=== PATIENT | male | born 1955 | race Two or more races ===

== ENCOUNTER 2022-05-01 20:08 | Inpatient (IN) | payer OTHER ==
[2022-05-01 22:05] VITALS: BMI 20.2
[2022-05-01] MEDS ORDERED: BISMUTH SUBSALICYLATE 524 MG/30 ML PO PRN (22:21)
[2022-05-01] MEDS ORDERED: IBUPROFEN 400 MG TABLET (FP) PO PRN (22:21)
[2022-05-01] MEDS ORDERED: ONDANSETRON *ODT* 4 MG TABLET SL PRN (22:21)
[2022-05-01] MEDS ORDERED: MAGNESIUM HYDROX 2400MG/30ML ORAL SUSPENSION 30 ML CUP PO PRN (22:21)
[2022-05-01] MEDS ORDERED: guaiFENesin 600 MG TABLET.ER (FP) PO PRN (22:21)
[2022-05-01] MEDS ORDERED: DICYCLOMINE HCL 10 MG CAPSULE PO PRN (22:21)
[2022-05-01] MEDS ORDERED: NALOXONE HCL (KLOXXADO) 8 MG SPRAY NS PRN (22:21)
[2022-05-01] MEDS ORDERED: NALOXONE HCL 0.4 MG/ML VIAL IM PRN (22:21)
[2022-05-01] MEDS ORDERED: POLYETHYLENE GLYCOL (HEALTHYLAX) 3350 17 GM PACKET PO PRN (22:21)
[2022-05-01] MEDS ORDERED: P-EPHED 60MG/TRIPROLIDI 2.5MG TABLET PO PRN (22:21)
[2022-05-01] MEDS ORDERED: BENZONATATE 200 MG CAPSULE PO PRN (22:21)
[2022-05-01] MEDS ORDERED: ACETAMINOPHEN 325 MG TABLET (FP) PO PRN (22:21)
[2022-05-01] MEDS ORDERED: LOPERAMIDE HCL 2 MG CAPSULE PO PRN (22:21)
[2022-05-01] MEDS ORDERED: MAG HYDROX/AL HYDROX/SIMETH 30 ML UNIT-DOSE CUP PO PRN (22:21)
[2022-05-01] MEDS ORDERED: IBUPROFEN 600 MG TABLET (FP) PO PRN (22:21)
[2022-05-01] MEDS ORDERED: BENZOCAINE/MENTHOL (CHLORASEPTIC ) LOZENGE MM PRN (22:21)
[2022-05-02 10:11] LABS: HEMATOCRIT 33.7 % (35.4-49); HEMOGLOBIN 11.4 GM/dL (11.7-16.9); MCH 28.5 pg (25.7-33.7); MCHC 33.9 g/dl (32.0-35.9); MEAN CELL VOLUME 84.1 fl (80-96); MEAN PLT VOLUME 8.2 fl (7.5-11.1); PLATELET COUNT 322 10^3/uL (134-434); RBC 4.01 M/mm3 (4.00-5.60); RDW 14.4 % (11.9-15.9); WHITE BLOOD COUNT 5.9 K/mm3 (4.0-10.0)
[2022-05-02] MEDS: PRENATAL VITAMINS W/ FOLIC ACID TABLET (FP) PO SCH (10:37)
[2022-05-02 12:44] LABS: CALCIUM 8.2 mg/dL (8.5-10.1)
[2022-05-02 12:45] LABS: ALBUMIN 2.5 g/dl (3.4-5.0); BLOOD UREA NITROGEN 25.5 mg/dL (7-18)
[2022-05-02 12:48] LABS: CREATININE 0.7 mg/dL (0.55-1.3)
[2022-05-02 12:49] LABS: BILIRUBIN,TOTAL 0.3 mg/dL (0.2-1)
[2022-05-02 12:51] LABS: TOT PROT 5.5 g/dl (6.4-8.2)
[2022-05-02] MEDS: THIAMINE HCL 100 MG TABLET (FP) PO SCH (22:54)
[2022-05-03] MEDS: PRENATAL VITAMINS W/ FOLIC ACID TABLET (FP) PO SCH (10:40)
[2022-05-03] MEDS: LACTULOSE 20 GM/30 ML UDC (FOR ORAL USE ONLY) PO SCH ×3 (14:43→23:06)
[2022-05-03] MEDS: THIAMINE HCL 100 MG TABLET (FP) PO SCH (23:06)
[2022-05-04] MEDS ORDERED: cloNIDine HCL 0.1 MG TABLET PO ONE (10:06)
[2022-05-04] MEDS: PRENATAL VITAMINS W/ FOLIC ACID TABLET (FP) PO SCH (10:28)
[2022-05-04] MEDS: LACTULOSE 20 GM/30 ML UDC (FOR ORAL USE ONLY) PO SCH ×4 (11:28→23:16)
[2022-05-04] MEDS: amLODIPine BESYLATE 5 MG TABLET (FP) PO SCH (14:38)
[2022-05-04] MEDS ORDERED: LISINOPRIL 5 MG TABLET PO ONE (17:30)
[2022-05-04] MEDS: THIAMINE HCL 100 MG TABLET (FP) PO SCH (23:16)
[2022-05-05] MEDS: PRENATAL VITAMINS W/ FOLIC ACID TABLET (FP) PO SCH (10:37)
[2022-05-05] MEDS: amLODIPine BESYLATE 5 MG TABLET (FP) PO SCH (10:37)
[2022-05-05] MEDS: LACTULOSE 20 GM/30 ML UDC (FOR ORAL USE ONLY) PO SCH ×3 (10:37→17:31)
[2022-05-05 13:03] VITALS: TEMP 98.4
[2022-05-05 13:51] LABS: HEMATOCRIT 44.7 % (35.4-49); HEMOGLOBIN 14.9 GM/dL (11.7-16.9); MCH 28.3 pg (25.7-33.7); MCHC 33.3 g/dl (32.0-35.9); MEAN CELL VOLUME 84.8 fl (80-96); MEAN PLT VOLUME 8.5 fl (7.5-11.1); PLATELET COUNT 455 10^3/uL (134-434); RBC 5.27 M/mm3 (4.00-5.60); RDW 14.7 % (11.9-15.9); WHITE BLOOD COUNT 10.1 K/mm3 (4.0-10.0)
[2022-05-05 13:55] LABS: BLOOD UREA NITROGEN 26.5 mg/dL (7-18); CALCIUM 9.6 mg/dL (8.5-10.1)
[2022-05-05 13:56] LABS: ALBUMIN 3.4 g/dl (3.4-5.0)
[2022-05-05 13:59] LABS: CREATININE 0.8 mg/dL (0.55-1.3)
[2022-05-05 14:00] LABS: TOT PROT 7.1 g/dl (6.4-8.2)
[2022-05-05 17:24] VITALS: BP 136/85; PULSE 82; RESP 17
== END 2022-05-05 17:42 | disposition other institution (70) | DRG 773 ==
LOC: YASAS 20:08 → Y3N 23:26
PROVIDERS: ADMIT Allergy & Immunology; ATTEND Surgery
PROC: HZ2ZZZZ Detoxification Services for Substance Abuse Treatment (ICD-10-PCS; principal; 2022-05-01)
DX: F11.10 Opioid abuse, uncomplicated (principal); F17.210 Nicotine dependence, cigarettes, uncomplicated; R41.82 Altered mental status, unspecified; R11.2 Nausea with vomiting, unspecified; R79.89 Other specified abnormal findings of blood chemistry; R26.89 Other abnormalities of gait and mobility; Z28.310 Unvaccinated for COVID-19; Z28.9 Immunization not carried out for unspecified reason; Z56.0 Unemployment, unspecified; Z59.00 Homelessness unspecified
CPT/HCPCS: 36415; 80053; 82140; 82550; 83690; 83735; 84100; 85025; 85027; 86593; 86780; 87811; 99284-25; C9803-CS; Q0162; U0003; U0005

== ENCOUNTER 2022-05-03 19:57 | Emergency (ER) | payer OTHER ==
[2022-05-03 20:26] VITALS: BP 171/89; PULSE 60; RESP 16; TEMP 97.7; BMI 25.0
[2022-05-03] MEDS ORDERED: SODIUM CHLORIDE 0.9% 500 ML INFUS.BAG IV ONE (21:11)
[2022-05-03] MEDS ORDERED: ONDANSETRON 4 MG/2 ML VIAL IVPUSH ONE (21:11)
[2022-05-03] MEDS ORDERED: LACTULOSE 20 GM/30 ML UDC (FOR ORAL USE ONLY) PO ONE (21:21)
[2022-05-03] MEDS ORDERED: ONDANSETRON 4 MG/2 ML VIAL ONE (21:32)
[2022-05-03 21:49] LABS: BASO % 0.7 % (0-2.0); HEMATOCRIT 41.9 % (35.4-49); HEMOGLOBIN 13.8 GM/dL (11.7-16.9); LYMPH % 4.6 % (8-40); MCH 27.3 pg (25.7-33.7); MCHC 32.9 g/dl (32.0-35.9); MONO % 3.9 % (3.8-10.2); NEUT % 90.8 % (42.8-82.8); PLATELET COUNT 410 10^3/uL (134-434); RBC 5.05 M/mm3 (4.00-5.60); RDW 14.8 % (11.9-15.9); WHITE BLOOD COUNT 12.6 K/mm3 (4.0-10.0)
[2022-05-03 22:02] LABS: CALCIUM 8.7 mg/dL (8.5-10.1)
[2022-05-03 22:03] LABS: BLOOD UREA NITROGEN 11.5 mg/dL (7-18); MAGNESIUM 1.9 mg/dL (1.8-2.4)
[2022-05-03 22:05] LABS: CREATININE 0.6 mg/dL (0.55-1.3)
[2022-05-03 22:06] LABS: PHOSPHOROUS 2.7 mg/dL (2.5-4.9)
[2022-05-03 22:07] LABS: TOT PROT 6.8 g/dl (6.4-8.2)
[2022-05-03] MEDS ORDERED: LACTULOSE 20 GM/30 ML UDC (FOR ORAL USE ONLY) ONE (22:12)
[2022-05-03 22:19] LABS: ALBUMIN 3.1 g/dl (3.4-5.0)
== END 2022-05-04 01:15 | disposition home or self-care (01) ==
LOC: JER 19:57
PROC: 3E033GC Introduction of Other Therapeutic Substance into Peripheral Vein, Percutaneous Approach (ICD-10-PCS; principal; 2022-05-03)
DX: R11.10 Vomiting, unspecified (principal); R52 Pain, unspecified; F11.10 Opioid abuse, uncomplicated
CPT/HCPCS: 36415; 80053; 83690; 83735; 84100; 85025; 99284-25

== ENCOUNTER 2022-05-05 17:39 | Inpatient (IN) | payer OTHER ==
[2022-05-05] MEDS ORDERED: BENZONATATE 200 MG CAPSULE PO PRN (18:56)
[2022-05-05] MEDS ORDERED: IBUPROFEN 400 MG TABLET (FP) PO PRN (18:56)
[2022-05-05] MEDS ORDERED: MAGNESIUM HYDROX 2400MG/30ML ORAL SUSPENSION 30 ML CUP PO PRN (18:56)
[2022-05-05] MEDS ORDERED: ACETAMINOPHEN 325 MG TABLET (FP) PO PRN (18:56)
[2022-05-05] MEDS ORDERED: guaiFENesin 600 MG TABLET.ER (FP) PO PRN (18:56)
[2022-05-05] MEDS ORDERED: IBUPROFEN 600 MG TABLET (FP) PO PRN (18:56)
[2022-05-05] MEDS ORDERED: MAG HYDROX/AL HYDROX/SIMETH 30 ML UNIT-DOSE CUP PO PRN (18:56)
[2022-05-05] MEDS ORDERED: BENZOCAINE/MENTHOL (CHLORASEPTIC ) LOZENGE MM PRN (18:56)
[2022-05-05] MEDS ORDERED: LOPERAMIDE HCL 2 MG CAPSULE PO PRN (18:56)
[2022-05-05] MEDS ORDERED: NALOXONE HCL 0.4 MG/ML VIAL IVPUSH PRN (18:56)
[2022-05-05] MEDS ORDERED: POLYETHYLENE GLYCOL (HEALTHYLAX) 3350 17 GM PACKET PO PRN (18:56)
[2022-05-05] MEDS ORDERED: NALOXONE HCL (KLOXXADO) 8 MG SPRAY NS PRN (18:56)
[2022-05-05] MEDS: THIAMINE HCL 100 MG TABLET (FP) PO SCH (22:59)
[2022-05-05] MEDS: LACTULOSE 20 GM/30 ML UDC (FOR ORAL USE ONLY) PO SCH (22:59)
[2022-05-06] MEDS: LACTULOSE 20 GM/30 ML UDC (FOR ORAL USE ONLY) PO SCH ×4 (09:40→21:41)
[2022-05-06] MEDS: PRENATAL VITAMINS W/ FOLIC ACID TABLET (FP) PO SCH (09:40)
[2022-05-06] MEDS: MELATONIN 5 MG TABLETS PO PRN (21:41)
[2022-05-06] MEDS: THIAMINE HCL 100 MG TABLET (FP) PO SCH (21:41)
[2022-05-07] MEDS: LACTULOSE 20 GM/30 ML UDC (FOR ORAL USE ONLY) PO SCH ×4 (10:33→22:32)
[2022-05-07] MEDS: PRENATAL VITAMINS W/ FOLIC ACID TABLET (FP) PO SCH (10:33)
[2022-05-07] MEDS: THIAMINE HCL 100 MG TABLET (FP) PO SCH (21:57)
[2022-05-07] MEDS: MELATONIN 5 MG TABLETS PO PRN (21:57)
[2022-05-08] MEDS: LACTULOSE 20 GM/30 ML UDC (FOR ORAL USE ONLY) PO SCH ×4 (10:07→21:17)
[2022-05-08] MEDS: PRENATAL VITAMINS W/ FOLIC ACID TABLET (FP) PO SCH (10:07)
[2022-05-08] MEDS: MELATONIN 5 MG TABLETS PO PRN (21:17)
[2022-05-08] MEDS: THIAMINE HCL 100 MG TABLET (FP) PO SCH (21:17)
[2022-05-09 07:11] VITALS: RESP 16
[2022-05-09] MEDS: LACTULOSE 20 GM/30 ML UDC (FOR ORAL USE ONLY) PO SCH ×2 (10:35→14:42)
[2022-05-09] MEDS: PRENATAL VITAMINS W/ FOLIC ACID TABLET (FP) PO SCH (10:36)
[2022-05-09 12:15] LABS: PH,URINE 5.5 (5.0-8.0); URINE APPEARANCE CLEAR; URINE BILIRUBIN NEGATIVE (NEGATIVE); URINE COLOR YELLOW; URINE GLUCOSE (UA) NEGATIVE (NEGATIVE); URINE KETONE TRACE (NEGATIVE); URINE LEUK ESTERASE NEGATIVE (NEGATIVE); URINE NITRITE NEGATIVE (NEGATIVE); URINE PROTEIN TRACE (NEGATIVE); URINE UROBILINOGEN 0.2 mg/dL (0.2-1.0)
[2022-05-09 15:28] VITALS: BP 156/81; PULSE 95; TEMP 97.1
== END 2022-05-09 15:19 | disposition short-term general hospital (02) | DRG 772 ==
LOC: YASAS 17:39 → Y3W 17:42
PROVIDERS: ADMIT Allergy & Immunology; ATTEND Allergy & Immunology
PROC: HZ42ZZZ Group Counseling for Substance Abuse Treatment, Cognitive-Behavioral (ICD-10-PCS; principal; 2022-05-05)
DX: F11.20 Opioid dependence, uncomplicated (principal); F10.20 Alcohol dependence, uncomplicated; F17.210 Nicotine dependence, cigarettes, uncomplicated; G40.89 Other seizures; R79.89 Other specified abnormal findings of blood chemistry; R26.2 Difficulty in walking, not elsewhere classified; Z99.89 Dependence on other enabling machines and devices
CPT/HCPCS: 81003; 82962

== ENCOUNTER 2022-05-09 15:36 | Observation (INO) | payer OTHER ==
[2022-05-09 15:58] VITALS: BMI 18.8
[2022-05-09 16:28] LABS: BASO % 1.2 % (0-2.0); EOS % 0.8 % (0-4.5); HEMATOCRIT 36.4 % (35.4-49); HEMOGLOBIN 12.3 GM/dL (11.7-16.9); LYMPH % 5.8 % (8-40); MCH 28.7 pg (25.7-33.7); MCHC 33.7 g/dl (32.0-35.9); MEAN CELL VOLUME 85.1 fl (80-96); NEUT % 87.2 % (42.8-82.8); PLATELET COUNT 300 10^3/uL (134-434); RBC 4.28 M/mm3 (4.00-5.60); RDW 15.3 % (11.9-15.9); WHITE BLOOD COUNT 8.3 K/mm3 (4.0-10.0)
[2022-05-09] MEDS ORDERED: NALOXONE HCL 0.4 MG/ML VIAL ONE ×2 (16:40→19:17)
[2022-05-09] MEDS ORDERED: NALOXONE HCL 0.4 MG/ML VIAL IVPUSH ONE ×2 (16:56→19:14)
[2022-05-09 17:16] LABS: CHLORIDE 110 mmol/L (98-107); SODIUM 143 mmol/L (136-145)
[2022-05-09 17:17] LABS: CALCIUM 8.5 mg/dL (8.5-10.1)
[2022-05-09 17:18] LABS: ANION GAP 7 MMOL/L (8-16); BLOOD UREA NITROGEN 28.1 mg/dL (7-18); CO2 26 mmol/L (21-32); GLUCOSE,RANDOM 121 mg/dL (74-106)
[2022-05-09 17:21] LABS: CREATININE 0.8 mg/dL (0.55-1.3); SGOT/AST 15 U/L (15-37); SGPT/ALT 26 U/L (13-61)
[2022-05-09 17:22] LABS: BILIRUBIN,TOTAL 0.5 mg/dL (0.2-1); TOT PROT 5.9 g/dl (6.4-8.2)
[2022-05-09 17:24] LABS: ALK PHOS 142 U/L (45-117)
[2022-05-09] MEDS ORDERED: LACTATED RINGERS SOLUTION 1,000 ML/1,000 ML INFUS.BAG IV SCH (18:15)
[2022-05-10] MEDS ORDERED: NALOXONE HCL 0.4 MG/ML VIAL IVPUSH PRN (03:53)
[2022-05-10] MEDS ORDERED: SODIUM CHLORIDE 1,000 ML IV SCH (04:00)
[2022-05-10 06:37] LABS: HEMATOCRIT 35.9 % (35.4-49); HEMOGLOBIN 12.2 GM/dL (11.7-16.9); MCH 28.8 pg (25.7-33.7); MCHC 33.8 g/dl (32.0-35.9); MEAN CELL VOLUME 85.1 fl (80-96); MEAN PLT VOLUME 8.4 fl (7.5-11.1); PLATELET COUNT 288 10^3/uL (134-434); RBC 4.22 M/mm3 (4.00-5.60); RDW 15.7 % (11.9-15.9); WHITE BLOOD COUNT 13.8 K/mm3 (4.0-10.0)
[2022-05-10 06:42] LABS: CALCIUM 8.1 mg/dL (8.5-10.1)
[2022-05-10 06:43] LABS: MAGNESIUM 2.3 mg/dL (1.8-2.4)
[2022-05-10 06:46] LABS: CREATININE 0.9 mg/dL (0.55-1.3); PHOSPHOROUS 4.8 mg/dL (2.5-4.9)
[2022-05-10] MEDS ORDERED: ENOXAPARIN NA (PORCINE) 40 MG/0.4 ML DISP.SYRIN SQ SCH (10:00)
[2022-05-10 10:06] VITALS: BP 92/66; PULSE 76; RESP 16; TEMP 98.1
[2022-05-10 15:32] LABS: PHENCYCLIDINE,URINE NEGATIVE (NEGATIVE); URINE AMPHETAMINES NEGATIVE (NEGATIVE)
[2022-05-10 15:33] LABS: COCAINE, UR NEGATIVE (NEGATIVE); METHADONE, UR NEGATIVE (NEGATIVE); OPIATES, URI NEGATIVE (NEGATIVE); URINE BARBITURATES NEGATIVE (NEGATIVE); URINE BENZODIAZEPINES NEGATIVE (NEGATIVE)
== END 2022-05-10 17:38 | disposition home or self-care (01) ==
LOC: JER 15:36 → JERBED 05-10 01:58
PROVIDERS: ADMIT Internal Medicine
PROC: 3E033GC Introduction of Other Therapeutic Substance into Peripheral Vein, Percutaneous Approach (ICD-10-PCS; principal; 2022-05-10)
PROC: 3E0337Z Introduction of Electrolytic and Water Balance Substance into Peripheral Vein, Percutaneous Approach (ICD-10-PCS; 2022-05-10)
DX: T40.1X1A Poisoning by heroin, accidental (unintentional), initial encounter (principal); F11.90 Opioid use, unspecified, uncomplicated; F17.210 Nicotine dependence, cigarettes, uncomplicated
CPT/HCPCS: 0241U-QW; 36415; 70450-TC; 80048; 80053; 80307; 83605; 83735; 84100; 84146; 85025; 85027; 93005; 93010; 96361; 96374; 96376; 99285-25; G0378